=== PATIENT | female | born 1955 | race Caucasian/White ===

== ENCOUNTER 2017-02-19 12:38 | Outpatient (CLI) | payer MEDICARE ==
--- NOTE | 2017-02-19 14:08 | MRI ---
LUMBAR SPINE MRI WITHOUT CONTRAST: DTAE: 02/19/17. COMPARISON: 11/24/12. HISTORY: Right-sided low back pain with leg pain, lower extremity radiculopathy, possible lifting injury 3 wee ks ago. TECHNIQUE: Multiplanar, multisequence MR imaging of the lumbar spine is provided without contrast. FINDINGS: The sagittal STIR imaging demonstrates no focal area of osseous marrow edema. 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 Assuming 5 lumbar-type vertebral bodies, the conus medullaris terminates at the L1 level. T12-L1: Intervertebral disk height and signal intensity appears within normal limits with no central canal or neural foraminal stenosis. L1-2: Intervertebral disk height and signal intensity is within normal limits with no significant ce ntral canal or neural foraminal stenosis. L2-3: Intervertebral disk height and signal intensity appears within normal limits with no central c anal or neural foraminal stenosis. L3-4: Intervertebral disk height and signal intensity appears within normal limits with no significa nt central canal or neural foraminal stenosis. L4-5: There is mild bilateral facet hypertrophy. There is mild disk desiccation and mild disk space narrowing. There is an annular tear in the left foraminal region and the right foraminal region wit h no significant central canal or neural foraminal stenosis. L5-S1: Mild disk bulge. No central canal stenosis. Bilateral foraminal annular tears are present w ith no significant central canal or neural foraminal stenosis. Imaged retroperitoneal structures grossly unremarkable. Incompletely imaged sigmoid colonic divertic ulosis noted. IMPRESSION: No significant central canal or neural foraminal stenosis. POS: SHANT
== END 2017-02-19 12:39 | disposition home or self-care (01) ==
LOC: SCSMRI 12:38
PROVIDERS: ATTEND Physical Medicine & Rehabilitation
DX: M54.5 Low back pain (principal); M54.2 Cervicalgia; M79.606 Pain in leg, unspecified
CPT/HCPCS: 72148

== ENCOUNTER 2021-08-13 14:19 | Outpatient (CLI) | payer MEDICARE | END 2021-08-13 14:20 | disposition home or self-care (01) | LOC: SCSMRI 14:19 | PROVIDERS: ATTEND Psychiatry & Neurology Neurology | DX: R26.81 Unsteadiness on feet (principal); M75.102 Unspecified rotator cuff tear or rupture of left shoulder, not specified as traumatic; Z96.642 Presence of left artificial hip joint; M51.36 Other intervertebral disc degeneration, lumbar region | CPT/HCPCS: 72148 ==

== ENCOUNTER 2021-09-11 11:21 | Outpatient (CLI) | payer MEDICARE ==
[2021-09-11 13:01] LABS: #Eosinphils 0.1 10x3/uL (0.0-0.5); #Monocytes 0.5 10x3/uL (0.0-1.1); #Neutrophils 3.7 10x3/uL (1.5-8.4); %Basophils 0.6 % (0.0-2.0); %Eosinophils 1.7 % (0.0-6.0); %Neutrophils 56.9 % (40.0-75.0); Hemoglobin 13.8 g/dL (12.0-15.5); Mean Corpuscular HGB CONC 33.7 g/dL (32.0-36.0); Mean Corpuscular Hemoglobin 33.5 pg (27.0-33.0); Mean Corpuscular Volume 99.3 fl (81.6-98.3); Platelet Count 241 10x3/uL (150-450); RBC Distribution Width 11.5 % (11.5-14.5); Red Blood Cell (RBC) Count 4.12 10x6/uL (3.90-5.03); White Blood Cell (WBC) Count 6.5 10x3/uL (3.5-10.5)
[2021-09-11 13:02] LABS: INR-International Normal Ratio 0.9; Prothrombin Time 9.6 sec (9.5-12.1)
[2021-09-11 13:10] LABS: Anion Gap 15 mmol/L (10-20); BUN (Urea Nitrogen) 6 mg/dL (9.8-20.1); Calc. Creatinine Clearance 0 mL/min (70-130); Calcium 9.7 mg/dL (7.8-10.44); Carbon Dioxide 30 mmol/L (23-31); Chloride 100 mmol/L (98-107); Estimated GFR 91; Glucose 97 mg/dL (80-115); Sodium 141 mmol/L (136-145)
== END 2021-09-11 11:22 | disposition home or self-care (01) ==
LOC: LABBT 11:21
PROVIDERS: ATTEND Orthopaedic Surgery
DX: Z01.812 Encounter for preprocedural laboratory examination (principal); M05.862 Other rheumatoid arthritis with rheumatoid factor of left knee; Z20.822 Contact with and (suspected) exposure to COVID-19
CPT/HCPCS: 80048; 85025; 85610; 87081; 87811

== ENCOUNTER 2021-09-16 05:29 | Observation (INO) | payer MEDICARE ==
[2021-09-12 11:11] VITALS: BMI 24.2
[2021-09-16] MEDS ORDERED: fentaNYL Citrate/PF 100 MCG/2 ML SYRINGE ONE (06:08)
[2021-09-16] MEDS ORDERED: Dexmedetomidine 200 MCG/2 ML VIAL ONE (06:09)
[2021-09-16] MEDS ORDERED: Sodium Chloride 0.9% 100 ML ONE ×2 (06:10→06:53)
[2021-09-16] MEDS ORDERED: Tranexamic Acid 1,000 MG/10 ML VIAL ONE (06:10)
[2021-09-16] MEDS ORDERED: Vancomycin 1 GM/200 ML BAG ONE (06:10)
[2021-09-16] MEDS ORDERED: Midazolam HCl 2 mg/2 ml Vial ONE (06:16)
[2021-09-16] MEDS ORDERED: Bupivacaine/Epinephrine 0.25% 30 ML VIAL ONE (06:23)
[2021-09-16] MEDS ORDERED: Bupivacaine HCl 0.5%/Epinephrine 1:200,000/PF 30 ml Vial ONE (06:45)
[2021-09-16] MEDS ORDERED: Glycopyrrolate 0.2 MG/ML 5 ML SYRINGE ONE (06:45)
[2021-09-16] MEDS ORDERED: PROPOFOL 200 MG/20 ML VIAL ONE (06:45)
[2021-09-16] MEDS ORDERED: Lidocaine 1% PF 5 ML VIAL ONE (06:45)
[2021-09-16] MEDS ORDERED: Neostigmine Methylsulfate 3 MG/3 ML SYRINGE ONE (06:45)
[2021-09-16] MEDS ORDERED: Ketorolac Tromethamine 30 MG/ML VIAL ONE (06:45)
[2021-09-16] MEDS ORDERED: Dexamethasone 20 MG/5 ML VIAL ONE (06:45)
[2021-09-16] MEDS ORDERED: Rocuronium Bromide 10 MG/ML (10ML VIAL) ONE (06:45)
[2021-09-16] MEDS ORDERED: Ondansetron PF 4 MG/2 ML Vial ONE (06:45)
[2021-09-16] MEDS ORDERED: CEFAZOLIN 2 GM VIAL ONE (06:53)
[2021-09-16] MEDS ORDERED: Fentanyl 100 MCG/2 ML VIAL SLOW IVP PRN (08:06)
[2021-09-16] MEDS ORDERED: HYDROcodone/Acetaminophen 10/325 mg Tablet PO PRN (08:15)
[2021-09-16] MEDS ORDERED: Zolpidem Tartrate 5 MG TAB PO PRN ×2 (08:15→08:58)
[2021-09-16] MEDS ORDERED: Promethazine HCl 25 MG/ML VIAL IM PRN ×3 (08:15→09:12)
[2021-09-16] MEDS ORDERED: traMADol HCl 50 MG TAB PO PRN ×2 (08:15)
[2021-09-16] MEDS ORDERED: Ondansetron PF 4 MG/2 ML Vial IVP PRN ×2 (08:15→08:58)
[2021-09-16] MEDS ORDERED: Ropivacaine 0.2% 550 ML 550 ML NERVE BLCK SCH (08:15)
[2021-09-16] MEDS ORDERED: Acetaminophen 325 MG TAB PO PRN (08:58)
[2021-09-16] MEDS ORDERED: diphenhydrAMINE 25 MG CAP PO PRN (08:58)
[2021-09-16] MEDS ORDERED: Fentanyl 100 MCG/2 ML VIAL ONE ×2 (09:12→09:22)
[2021-09-16] MEDS ORDERED: Ondansetron HCl/PF 4 MG/2 ML Vial IVP PRN (09:12)
[2021-09-16] MEDS ORDERED: HYDROmorphone 2 MG/ML VIAL SLOW IVP PRN (09:12)
[2021-09-16] MEDS ORDERED: Promethazine HCl 25 MG/ML VIAL IVPB PRN (09:12)
[2021-09-16] MEDS ORDERED: Naloxone HCl 0.4 mg/ml Vial ONE (10:12)
[2021-09-16] MEDS: Aspirin 81 mg Enteric Coated Tablet PO SCH ×2 (11:14→20:31)
[2021-09-16] MEDS: Ketorolac Tromethamine 30 MG/ML VIAL IVP SCH ×3 (12:13→23:28)
[2021-09-16] MEDS: Sodium Chloride 0.9% 1,000 ML IV SCH ×2 (12:13→19:38)
[2021-09-16] MEDS: CEFAZOLIN 2 GM in Sodium Chloride 0.9% 100 ML IVPB SCH ×2 (14:07→23:29)
[2021-09-16] MEDS: HYDROcodone/Acetaminophen 10/325 mg Tablet PO PRN (18:00)
[2021-09-16] MEDS ORDERED: Vancomycin 1 GM in Premix Bag 1 BAG IVPB SCH (20:00)
[2021-09-17] MEDS: Sodium Chloride 0.9% 1,000 ML IV SCH ×2 (01:06→17:03)
[2021-09-17] MEDS: Ketorolac Tromethamine 30 MG/ML VIAL IVP SCH ×2 (05:33→11:49)
[2021-09-17 06:03] LABS: Hemoglobin 10.9 g/dL (12.0-16.0); Mean Corpuscular HGB CONC 33.2 g/dL (32.0-36.0); Mean Corpuscular Hemoglobin 34.5 pg (27.0-31.0); Mean Platelet Volume 8.6 fL (7.4-10.4); Platelet Count 207 thou/uL (130-400); RBC Distribution Width 10.9 % (11.5-14.5); Red Blood Cell (RBC) Count 3.16 mill/uL (4.20-5.40); White Blood Cell (WBC) Count 13.7 thou/uL (4.8-10.8)
[2021-09-17] MEDS ORDERED: Ferrous Gluconate 324 MG TAB PO SCH (08:00)
[2021-09-17] MEDS: Aspirin 81 mg Enteric Coated Tablet PO SCH (08:33)
[2021-09-17] MEDS: HYDROcodone/Acetaminophen 10/325 mg Tablet PO PRN ×2 (08:33→17:02)
[2021-09-17] MEDS ORDERED: Multivitamin W/ Minerals 1 TAB PO SCH (09:00)
[2021-09-17] MEDS ORDERED: Senokot S 8.6-50 MG TAB PO SCH (09:00)
[2021-09-17] MEDS ORDERED: Tamsulosin HCl 0.4 MG CAP PO SCH (11:30)
[2021-09-17 17:07] VITALS: BP 114/72; TEMP 97.7
== END 2021-09-17 18:35 | disposition home or self-care (01) ==
LOC: SDC 05:29 → SURG A 08:58 → EDSTATUS 11:30 → SURG A 15:54 → SDC 15:54
PROVIDERS: ADMIT Orthopaedic Surgery; ATTEND Orthopaedic Surgery
PROC: 0SRD0J9 Replacement of Left Knee Joint with Synthetic Substitute, Cemented, Open Approach (ICD-10-PCS; principal; 2021-09-16)
PROC: 3E0T3BZ Introduction of Anesthetic Agent into Peripheral Nerves and Plexi, Percutaneous Approach (ICD-10-PCS; 2021-09-16)
DX: M05.862 Other rheumatoid arthritis with rheumatoid factor of left knee (principal); M81.0 Age-related osteoporosis without current pathological fracture; G62.9 Polyneuropathy, unspecified; I10 Essential (primary) hypertension; J45.909 Unspecified asthma, uncomplicated; I25.10 Atherosclerotic heart disease of native coronary artery without angina pectoris; E78.00 Pure hypercholesterolemia, unspecified; Z87.891 Personal history of nicotine dependence; Z79.1 Long term (current) use of non-steroidal anti-inflammatories (NSAID); Z79.899 Other long term (current) drug therapy; Z88.8 Allergy status to other drugs, medicaments and biological substances; Z95.5 Presence of coronary angioplasty implant and graft; Z96.642 Presence of left artificial hip joint
CPT/HCPCS: 27447; 64448; 73560; 85027; 97110 ×2; 97116 ×2; A4306; C1713; C1776; 36415; J0690; J1100; J1885; J2250; J2310; J2405; J2704; J2795; J3010; J3370; J3490; J7050

== ENCOUNTER 2023-07-01 21:09 | Inpatient (IN) | payer MEDICARE, OTHER ==
[~2023-07-01 21:09] MED LIST: Iopamidol-370 76% 500 ML MDV (1 ML CHARGE) ONE
[2023-07-01] MEDS ORDERED: Dicyclomine 20 MG/2 ML VIAL ONE (21:36)
[2023-07-01] MEDS ORDERED: Ondansetron PF 4 MG/2 ML Vial ONE (21:43)
[2023-07-01] MEDS ORDERED: Morphine 4 MG/ML VIAL ONE (21:43)
[2023-07-01 22:37] LABS: #Basophils 0.04 10x3/uL (0.0-0.2); %Basophils 0.5 % (0.0-1.0); %Lymphocytes 29.3 % (21.0-51.0); %Monocytes 8.5 % (0.0-10.0); %Neutrophils 59.1 % (42.0-75.0); Hematocrit 37.9 % (36.0-47.0); Hemoglobin 12.7 g/dL (12.0-16.0); Mean Corpuscular HGB CONC 33.5 g/dL (32.0-36.0); Mean Corpuscular Hemoglobin 32.3 pg (27.0-31.0); Mean Corpuscular Volume 96.4 fL (78.0-98.0); Mean Platelet Volume 10.5 fL (7.4-10.4); Platelet Count 266 10x3/uL (130-400); RBC Distribution Width 13.6 % (11.5-14.5); Red Blood Cell (RBC) Count 3.93 mill/uL (4.20-5.40)
[2023-07-01 22:52] LABS: ALT (SGPT) 13 U/L (8-55); AST (SGOT) 15 U/L (5-34); Albumin 3.5 g/dL (3.4-4.8); Alkaline Phosphatase 48 U/L (40-110); Anion Gap 13 mmol/L (10-20); BUN (Urea Nitrogen) 14 mg/dL (9.8-20.1); Bilirubin, Total 0.7 mg/dL (0.2-1.2); Calc. Creatinine Clearance 0 mL/min (70-130); Calcium 9.2 mg/dL (7.8-10.44); Carbon Dioxide 23 mmol/L (23-31); Chloride 109 mmol/L (98-107); Estimated GFR 91; Glucose 103 mg/dL (80-115); Lipase 24 U/L (8-78); Potassium 3.7 mmol/L (3.5-5.1); Protein, Total 6.5 g/dL (5.8-8.1); Sodium 141 mmol/L (136-145)
[2023-07-02] MEDS: Ondansetron PF 4 MG/2 ML Vial IVP SCH (00:15)
[2023-07-02] MEDS ORDERED: Pantoprazole DR 40 MG TAB ONE (00:21)
[2023-07-02] MEDS ORDERED: Morphine 4 MG/ML VIAL ONE (00:21)
[2023-07-02] MEDS ORDERED: Lidocaine 2% Viscous 10 mL, Alum & Magn 30 mL SSW SCH (02:45)
[2023-07-02 05:03] LABS: #Basophils 0.04 10x3/uL (0.0-0.2); %Basophils 0.6 % (0.0-1.0); %Eosinophils 3.2 % (0.0-10.0); %Lymphocytes 30.5 % (21.0-51.0); %Monocytes 7.9 % (0.0-10.0); %Neutrophils 57.2 % (42.0-75.0); Hematocrit 37.9 % (36.0-47.0); Hemoglobin 12.6 g/dL (12.0-16.0); Mean Corpuscular HGB CONC 33.2 g/dL (32.0-36.0); Mean Corpuscular Hemoglobin 32.3 pg (27.0-31.0); Mean Corpuscular Volume 97.2 fL (78.0-98.0); Mean Platelet Volume 10.8 fL (7.4-10.4); Platelet Count 272 10x3/uL (130-400)
[2023-07-02 05:22] LABS: Anion Gap 11 mmol/L (10-20); BUN (Urea Nitrogen) 11 mg/dL (9.8-20.1); Calc. Creatinine Clearance 0 mL/min (70-130); Calcium 9.7 mg/dL (7.8-10.44); Carbon Dioxide 26 mmol/L (23-31); Chloride 107 mmol/L (98-107); Estimated GFR 94; Glucose 110 mg/dL (80-115); Magnesium 1.9 mg/dL (1.6-2.6); Sodium 140 mmol/L (136-145)
[2023-07-02] MEDS: Lidocaine 2% Viscous 10 mL, Alum & Magn 30 mL SSW SCH (07:07)
[2023-07-02 07:11] LABS: Bacteria/HPF None Seen HPF (None Seen); Bilirubin Negative (Negative); Blood, Urine Negative (Negative); CAUTI Indications for Culture Dysuria,urgency,freq; Clarity Clear (Clear); Glucose, Urine (Dipstick) Normal (Negative); Ketone, Urine Negative (Negative); Leukocyte Negative Leu/uL (Negative); Nitrite Negative (Negative); Protein, Urine (Dipstick) Negative (Neg-Trace); RBC/HPF 0-3 HPF (0-3); Specific Gravity, Urine 1.006 (1.002-1.036); Squamous Epithelial 0-3 HPF (0-3); Urobilinogen Normal mg/dL (Less than 2); WBC/HPF 0-3 HPF (0-3)
[2023-07-02 07:14] LABS: Urine Culture Reflex No No
[2023-07-02 07:21] LABS: Amphetamine Not Detected (NotDetected); Barbiturates Screen Not Detected (NotDetected); Benzodiazepine Screen Detected (NotDetected); Cocaine Metabolite Screen Not Detected (NotDetected); Methadone Not Detected (NotDetected); Methamphetamine Not Detected (NotDetected); Opiate Screen Not Detected (NotDetected); Oxycodone Screen Not Detected (NotDetected); Phencyclidine (PCP) Not Detected (NotDetected); THC/Cannabinoid Screen Not Detected (NotDetected); Tricyclic Screen Not Detected (NotDetected)
[2023-07-02] MEDS ORDERED: Ondansetron PF 4 MG/2 ML Vial ONE (07:58)
[2023-07-02 08:33] VITALS: BMI 28.7
[2023-07-02] MEDS: Sodium Chloride 0.9% 1,000 ML IV SCH (09:10)
[2023-07-02] MEDS: Pantoprazole 40 MG VIAL IVP SCH (09:10)
[2023-07-02] MEDS: Ondansetron PF 4 MG/2 ML Vial IVP PRN (21:05)
[2023-07-02] MEDS: Acetaminophen 325 MG TAB PO PRN (21:05)
[2023-07-03] MEDS: Promethazine HCl 12.5 MG in Sodium Chloride 0.9% 50 ML IVPB PRN (05:09)
[2023-07-03 06:05] LABS: #Basophils Less than 0.03 10x3/uL (0.0-0.2); %Basophils 0.2 % (0.0-1.0); %Eosinophils 2.1 % (0.0-10.0); %Lymphocytes 17.5 % (21.0-51.0); %Monocytes 6.4 % (0.0-10.0); %Neutrophils 73.4 % (42.0-75.0); Hematocrit 35.9 % (36.0-47.0); Mean Corpuscular HGB CONC 33.4 g/dL (32.0-36.0); Mean Corpuscular Volume 95.7 fL (78.0-98.0); Mean Platelet Volume 11.3 fL (7.4-10.4); Platelet Count 239 10x3/uL (130-400); RBC Distribution Width 14.1 % (11.5-14.5); Red Blood Cell (RBC) Count 3.75 mill/uL (4.20-5.40)
[2023-07-03 06:22] LABS: Anion Gap 13 mmol/L (10-20); BUN (Urea Nitrogen) 7 mg/dL (9.8-20.1); Calc. Creatinine Clearance 101 mL/min (70-130); Calcium 9.2 mg/dL (7.8-10.44); Carbon Dioxide 24 mmol/L (23-31); Chloride 107 mmol/L (98-107); Estimated GFR 95; Glucose 106 mg/dL (80-115); Magnesium 1.8 mg/dL (1.6-2.6); Potassium 4.1 mmol/L (3.5-5.1); Sodium 140 mmol/L (136-145)
[2023-07-03] MEDS ORDERED: PROPOFOL 20 ML ONE (07:17)
[2023-07-03] MEDS ORDERED: Albuterol 200 PUFF (6.7GM INHALER) INH PRN (07:39)
[2023-07-03] MEDS: Rosuvastatin 20 MG TAB PO SCH (09:48)
[2023-07-03] MEDS: Aripiprazole 10 MG TAB PO SCH (09:49)
[2023-07-03] MEDS: Folic Acid 1 MG TAB PO SCH (09:49)
[2023-07-03] MEDS: Hydroxychloroquine Sulfate 200 MG TAB PO SCH (09:49)
[2023-07-03] MEDS: traZODone HCl 50 MG TAB PO SCH (20:31)
[2023-07-04] MEDS: Diazepam 2 MG TAB PO PRN (10:04)
[2023-07-04] MEDS ORDERED: Bacteriostatic Normal Saline 30 ML VIAL ONE (16:31)
[2023-07-05] MEDS: Metoclopramide HCl 10 MG TAB PO SCH (10:32)
[2023-07-05] MEDS: Amlodipine 10 MG TAB PO SCH (18:34)
[2023-07-05] MEDS: Lactated Ringer's 1,000 ML IV SCH (22:43)
[2023-07-06] MEDS: Cosyntropin 250 MCG VIAL SLOW IVP SCH (06:34)
[2023-07-06] MEDS: Isosorbide Mononitrate 30 MG ER.TAB PO SCH (11:46)
[2023-07-06] MEDS: Amlodipine 5 MG TAB PO SCH (11:47)
[2023-07-07] MEDS ORDERED: EPINEPHrine 1 MG/ML VIAL ONE (11:53)
[2023-07-07] MEDS ORDERED: Indocyanine Green 25 MG/10 ML VIAL ONE (11:53)
[2023-07-07] MEDS ORDERED: Bupivacaine 0.25% HCL 30 ML VIAL ONE (11:53)
[2023-07-07] MEDS: Indocyanine Green 25 MG/10 ML VIAL IVP SCH (11:58)
[2023-07-07] MEDS ORDERED: PROPOFOL 20 ML ONE (12:03)
[2023-07-07] MEDS ORDERED: Ondansetron PF 4 MG/2 ML Vial ONE (12:03)
[2023-07-07] MEDS ORDERED: fentaNYL PF 100 MCG/2 ML SYRINGE ONE ×2 (12:03→13:55)
[2023-07-07] MEDS ORDERED: Lidocaine 1% PF 5 ML VIAL ONE (12:03)
[2023-07-07] MEDS ORDERED: Rocuronium Bromide 10 MG/ML (10ML VIAL) ONE (12:03)
[2023-07-07] MEDS ORDERED: CEFAZOLIN 2 GM VIAL ONE (12:14)
[2023-07-07] MEDS ORDERED: Sodium Chloride 0.9% 100 ML ONE (12:14)
[2023-07-07] MEDS ORDERED: Dexamethasone 20 MG/5 ML VIAL ONE (12:16)
[2023-07-07] MEDS ORDERED: PHENYLEPHRINE-NS 100 MCG/ML 10 ML SYRINGE ONE (12:35)
[2023-07-07] MEDS ORDERED: SUGAMMADEX SODIUM 200 MG/2 ML VIAL ONE (12:38)
[2023-07-07] MEDS ORDERED: ePHEDrine Sulfate 50 MG/10 ML VIAL ONE (12:44)
[2023-07-07] MEDS ORDERED: Dextrose 50% Abboject 50 ML SYRINGE SLOW IVP PRN (13:39)
[2023-07-07] MEDS ORDERED: Mag-Al 1200 mg/1200 mg/30 ML UDCUP PO PRN (13:39)
[2023-07-07] MEDS ORDERED: Ondansetron PF 4 MG/2 ML Vial IVP PRN (13:39)
[2023-07-07] MEDS ORDERED: Dextrose 5% in Water 1,000 ML IV PRN (13:39)
[2023-07-07] MEDS ORDERED: Ipratropium/Albuterol 3 ML NEB NEB PRN (13:39)
[2023-07-07] MEDS ORDERED: Calcium Carbonate 500 MG ChewTAB PO PRN (13:39)
[2023-07-07] MEDS ORDERED: Glucagon 1 MG/ML KIT IM PRN (13:39)
[2023-07-07] MEDS: D5 1/2 NS w/20 mEq KCL 1,000 ML IV SCH (14:56)
[2023-07-07] MEDS: HYDROcodone/Acetaminophen 10/325 mg Tablet PO PRN (15:37)
[2023-07-07] MEDS: Ketorolac Tromethamine 30 MG (1 mL) VIAL IVP SCH (17:12)
[2023-07-07] MEDS: Enoxaparin 30 MG (0.3 mL) SYRINGE SC SCH (21:22)
[2023-07-07] MEDS: Famotidine/PF 20 mg/2ml Vial SLOW IVP SCH (21:22)
[2023-07-07] MEDS: Docusate 100 MG CAP PO SCH (21:23)
[2023-07-07] MEDS: Famotidine 20 MG TAB PO SCH (21:26)
[2023-07-08 08:48] VITALS: TEMP 97.9
[2023-07-08] MEDS: Polyethylene Glycol 3350 17 GM Packet PO SCH (08:54)
[2023-07-08 11:38] VITALS: BP 120/72
== END 2023-07-08 14:45 | disposition home or self-care (01) | DRG 419 ==
LOC: ERS 21:09 → ERHOLD 07-02 02:23 → SURG B 07-02 08:31 → OBSVTOIN 07-03 17:23
PROVIDERS: ADMIT Internal Medicine; ATTEND Internal Medicine
PROC: 0DJ08ZZ Inspection of Upper Intestinal Tract, Via Natural or Artificial Opening Endoscopic (ICD-10-PCS; 2023-07-03)
PROC: 0FT44ZZ Resection of Gallbladder, Percutaneous Endoscopic Approach (ICD-10-PCS; principal; 2023-07-07)
PROC: 8E0W4CZ Robotic Assisted Procedure of Trunk Region, Percutaneous Endoscopic Approach (ICD-10-PCS; 2023-07-07)
PROC: BF131ZZ Fluoroscopy of Gallbladder and Bile Ducts using Low Osmolar Contrast (ICD-10-PCS; 2023-07-07)
PROC: 3E033XZ Introduction of Vasopressor into Peripheral Vein, Percutaneous Approach (ICD-10-PCS; 2023-07-07)
DX: K82.8 Other specified diseases of gallbladder (principal); I10 Essential (primary) hypertension; M06.9 Rheumatoid arthritis, unspecified; E78.5 Hyperlipidemia, unspecified; Z79.899 Other long term (current) drug therapy; Z79.82 Long term (current) use of aspirin; Z88.8 Allergy status to other drugs, medicaments and biological substances; J44.9 Chronic obstructive pulmonary disease, unspecified; I25.10 Atherosclerotic heart disease of native coronary artery without angina pectoris; Z87.891 Personal history of nicotine dependence; G47.33 Obstructive sleep apnea (adult) (pediatric); I25.2 Old myocardial infarction; Z90.710 Acquired absence of both cervix and uterus; Z96.642 Presence of left artificial hip joint; Z90.89 Acquired absence of other organs; F41.9 Anxiety disorder, unspecified; F32.A Depression, unspecified; F39 Unspecified mood [affective] disorder; K21.9 Gastro-esophageal reflux disease without esophagitis
CPT/HCPCS: 36415; 70450; 74177; 78227; 80048; 80053; 80306; 80400; 81001; 83690; 83735; 85025; 88304; 93005; A9537; C1889; C9113; J0171; J0665; J0834; J1100; J1650; J1885; J2270; J2405; J2550; J2704; J3480; J3490; J7050; J7120; Q9967; S0028